=== PATIENT | male | born 1995 | race Caucasian/White ===

== ENCOUNTER 2024-06-05 22:21 | Emergency (ER) | payer SELFPAY, OTHER | END 2024-06-05 22:39 | disposition home or self-care (01) | LOC: CSHERS 22:21 | DX: R51.9 Headache, unspecified (principal); M54.9 Dorsalgia, unspecified; F17.210 Nicotine dependence, cigarettes, uncomplicated; V89.2XXA Person injured in unspecified motor-vehicle accident, traffic, initial encounter | CPT/HCPCS: 99284 ==